=== PATIENT | male | born 1965 | race Caucasian/White ===

== ENCOUNTER 2022-10-30 19:05 | Emergency (ER) | payer OTHER ==
[~2022-10-30] VITALS: Ht 182.9 cm; Wt 97.0 kg
[2022-10-30 19:27] VITALS: BP 126/83
[2022-10-30] MEDS ORDERED: ketorolac trometh. 30mg/ml inj. IM STA (21:27)
== END 2022-10-30 21:44 | disposition home or self-care (01) ==
LOC: ER 19:06
DX: R07.81 Pleurodynia (principal); R10.9 Unspecified abdominal pain; Z91.041 Radiographic dye allergy status; Z88.8 Allergy status to other drugs, medicaments and biological substances
CPT/HCPCS: 71045; 96372; 99283; J1885